=== PATIENT | female | born 1980 | race Caucasian/White ===

== ENCOUNTER → 2017-05-09 | Outpatient (CLI) | payer MEDICAID, OTHER ==
--- NOTE | 2017-05-09 12:00 | US ---
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 0.3 X 0.2 x 0.1 cm hypoechoic mixed nodule at the lower pole with well-defined margins. This no dule is wider than tall and shows no intranodular vascularity. LEFT: # of nodules measured on left: 0 ISTHMUS: # of nodules measured in the isthmus: 0 Bilateral neck scanned: upper left lymph node is noted at patient's area of palpable = 2.0 x 1.1 x 0. 4cm. IMPRESSION: Solitary 3 mm left thyroid nodule, too small for fine-needle aspiration. Surveillance is recommended. Incidentally noted nonenlarged, morphologically normal cervical lymph node is seen in the patient's area of palpable abnormality.
== END | disposition home or self-care (01) ==
LOC: RADUSWWP 11:02
PROVIDERS: ATTEND Internal Medicine Endocrinology, Diabetes & Metabolism
DX: E04.1 Nontoxic single thyroid nodule (principal); E55.9 Vitamin D deficiency, unspecified; E06.3 Autoimmune thyroiditis
CPT/HCPCS: 76536; 82306; 84443

== ENCOUNTER → 2017-07-26 | Outpatient (CLI) | payer MEDICAID, OTHER ==
--- NOTE | 2017-07-26 08:50 | US ---
EXAMINATION TYPE: US pelvic complete DATE OF EXAM: 07/26/2017 COMPARISON: NONE CLINICAL HISTORY: R10.13 Epigstric pain. Abnormally heavy bleeding with current period, passing large clots, 5, para 3, miscarriage 2, history of 3 c-sections and tubal ligation. TECHNIQUE: . Transabdominal sonographic images of the pelvis were acquired. Transvaginal sonographi c images were medically necessary to better assess the following anatomy: retroverted uterus and ovar ies. Date of LMP: 07/22/2017 EXAM MEASUREMENTS: Uterus: 8.7 x 4.8 x 6.0 cm Endometrial Stripe: 0.5 cm Right Ovary: 2.6 x 1.6 x 2.0 cm Left Ovary: 3.4 x 1.9 x 2.2 cm 1. Uterus: retroverted, heterogeneous without any definite lesions seen at this time 2. Endometrium: wnl for patient's LMP 3. Right Ovary: wnl 4. Left Ovary: small 1.3cm simple cyst vs. dominant follicle 5. Bilateral Adnexa: wnl 6. Posterior cul-de-sac: wnl IMPRESSION: 1. Simple left ovarian cyst. Multiple follicles are also present.
[2017-07-26 09:10] LABS: Basophils % (A) 1 %; Eosinophils # (A) 0.1 k/uL (0-0.7); Eosinophils % (A) 2 %; HCT 37.8 % (34.0-46.0); HGB 12.3 gm/dL (11.4-16.0); Lymphocytes # (A) 1.8 k/uL (1.0-4.8); Lymphocytes % (A) 29 %; MCH 28.7 pg (25.0-35.0); MCHC 32.6 g/dL (31.0-37.0); MCV 88.2 fL (80.0-100.0); Mean Platelet Volume 7.4; Monocytes # (A) 0.3 k/uL (0-1.0); Monocytes % (A) 5 %; Neutrophils # (A) 3.9 k/uL (1.3-7.7); Neutrophils % (A) 63 %; Platelet Count 243 k/uL (150-450); RBC 4.28 m/uL (3.80-5.40); RDW 13.1 % (11.5-15.5); WBC 6.3 k/uL (3.8-10.6)
[2017-07-26 09:18] LABS: ALT 29 U/L (9-52); AST 26 U/L (14-36); Albumin 4.5 g/dL (3.5-5.0); Alkaline Phosphatase 33 U/L (38-126); Anion Gap 11 mmol/L; Blood Urea Nitrogen 18 mg/dL (7-17); Calcium 9.2 mg/dL (8.4-10.2); Carbon Dioxide 26 mmol/L (22-30); Chloride 102 mmol/L (98-107); Glucose 80 mg/dL (74-99); Potassium 4.3 mmol/L (3.5-5.1); Sodium 139 mmol/L (137-145); Total Bilirubin 0.4 mg/dL (0.2-1.3); Total Protein 6.6 g/dL (6.3-8.2)
[2017-07-26 09:34] LABS: T4, Free (Free Thyroxine) 1.02 ng/dL (0.78-2.19)
== END | disposition home or self-care (01) ==
LOC: RADUSMAIN 07:59
PROVIDERS: ATTEND Physician Assistant
DX: N83.292 Other ovarian cyst, left side (principal); N93.9 Abnormal uterine and vaginal bleeding, unspecified
CPT/HCPCS: 36415; 76830; 76856; 80053; 84439; 84443; 85025

== ENCOUNTER 2017-09-19 18:59 | Emergency (ER) | payer MEDICAID, OTHER ==
[2017-09-19 19:07] VITALS: TEMP 98.4
[2017-09-19 20:17] VITALS: RESP 16
--- NOTE | 2017-09-19 20:20 | ED ---
Headache HPI - General Chief Complaint: Headache Stated Complaint: CT [id number] by Time Seen by Provider: 09/19/17 20:03 Mode of arrival: ambulatory Limitations: no limitations - History of Present Illness Initial Comments: 37-year-old female patient presents to the emergency department today for evaluation of posterior headache at the base of her skull that radiates into her neck. Patient states that she has had the headache for the last 6 days. Patient states that the pain gets up to 6-7 on a pain scale of 10. The patient states that with this she does have blurred vision, dizziness, and nausea. Patient denies any history of headaches or of similar pain. She denies any recent head injury. States that she has taken Excedrin Migraine, ibuprofen, Tylenol multiple times without relief of symptoms. States that she has been applying icy hot and heat packs to her neck thinking it might of been a muscle strain, this has not helped either. Patient states that she did go to urgent care today, had labs performed and CT of the brain. Patient states that they called her with abnormal CT results and instructed her to present to the emergency department right away. Patient denies any nasal congestion or drainage. Denies any fever or chills. States should have a sore throat over the weekend for which she took a Z-Femi, this did relieve her sore throat symptoms. Patient denies any recent rash, fever, chills, shortness breath, chest pain, abdominal pain, diarrhea, constipation, back pain, numbness, tingling, dizziness, weakness, hematuria, dysuria, urinary urgency, urinary frequency, or any other complaints. - Related Data Home Medications Medication Instructions Recorded Confirmed Acetaminophen Tab [Tylenol Tab] 650 mg PO Q6H PRN 09/19/17 09/19/17 Albuterol Inhaler [Ventolin Hfa 2 puff INHALATION RT-Q6H PRN 09/19/17 09/19/17 Inhaler] Aspirin/Acetaminophen/Caffeine 1 tab PO BID PRN 09/19/17 09/19/17 [Excedrin Migraine Caplet] Beclomethasone Dipropionate [Qvar 2 puff INHALATION RT-DAILY 09/19/17 09/19/17 80 mcg] Ibuprofen [Motrin Ib] 600 mg PO Q6H PRN 09/19/17 09/19/17 Previous Rx's Medication Instructions Recorded Doxycycline Hyclate 100 mg PO BID #20 tab 09/19/17 Allergies Allergy/AdvReac Type Severity Reaction Status Date / Time penicillin V [From Pen-Vee K] AdvReac Nausea Verified 09/19/17 20:27 Review of Systems ROS Statement: Those systems with pertinent positive or pertinent negative responses have been documented in the HPI. ROS Other: All systems not noted in ROS Statement are negative. Past Medical History Past Medical History: Asthma, Blood Disorder, Thyroid Disorder History of Any Multi-Drug Resistant Organisms: None Reported Past Surgical History: Section, Cholecystectomy, Tubal Ligation Past Psychological History: No Psychological Hx Reported Smoking Status: Never smoker Past Alcohol Use History: Occasional Past Drug Use History: None Reported General Exam Limitations: no limitations General appearance: alert, in no apparent distress, other (This is a well- developed, well-nourished adult female patient in no acute distress. Vital signs upon presentation are temperature 98.4F, pulse 75, respirations 118, blood pressure 135/92, pulse ox 98% on room air.) Eye exam: Present: normal appearance, PERRL, EOMI. Absent: scleral icterus, conjunctival injection, periorbital swelling ENT exam: Present: normal exam, normal oropharynx, mucous membranes moist, TM's normal bilaterally, other (No sinus tenderness) Neck exam: Present: normal inspection. Absent: tenderness, meningismus, lymphadenopathy Respiratory exam: Present: normal lung sounds bilaterally. Absent: respiratory distress, wheezes, rales, rhonchi, stridor Cardiovascular Exam: Present: regular rate, normal rhythm, normal heart sounds. Absent: systolic murmur, diastolic murmur, rubs, gallop, clicks GI/Abdominal exam: Present: soft, normal bowel sounds. Absent: distended, tenderness, guarding, rebound, rigid Neurological exam: Present: alert, oriented X3, CN II-XII intact, other ( Strength in all 4 extremities is 5/5.) Psychiatric exam: Present: normal affect, normal mood Skin exam: Present: warm, dry, intact, normal color. Absent: rash Course Vital Signs 09/19/17 09/19/17 09/19/17 19:03 20:16 21:12 Temperature 98.4 F Pulse Rate 75 74 71 Respiratory 118 H 16 16 Rate Blood Pressure 135/92 144/83 151/83 O2 Sat by Pulse 98 99 97 Oximetry Medical Decision Making - Medical Decision Making 37-year-old female patient presented to the emergency department today for complaints of posterior headache that radiated into her neck. Patient did have CT of the brain and labs performed at urgent care this morning. Did review the report from her CT which showed right maxillary sinus opacification with complex that he is indicating either fungal sinusitis or possible hemorrhage. There is no intracranial abnormalities. Labs reviewed and were normal. I did discuss findings with the patient and did discuss treatment for the sinusitis however did inform I do not believe that her headache and the sinusitis is related. We will treat her with doxycycline as she is ALLERGIC to penicillin. I did offer to treat her pain here in the emergency department however she is unable to receive anything that will alter her driving ability she does not have a ride home. Patient is taking Tylenol and ibuprofen already for pain control and she is instructed to continue this. We will add muscle relaxer for possible tension headache. She is instructed to follow-up with neurology for further evaluation. She is instructed to follow-up with your nose and throat specialty for further evaluation of the opacified right maxillary sinus. Return parameters discussed in detail. She verbalizes understanding and agrees with this plan. - Radiology Data Radiology results: report reviewed CT of the brain without contrast was performed. Report was reviewed in its entirety. Impression by Dr. Anna shows no acute intracranial hemorrhage, mass effect, or midline shift. If there is further clinical concern for small brain hemorrhage or parenchymal mass or white matter disease enhanced MRI could be performed for further evaluation. Complete opacification of the right maxillary sinus with complex attenuation internally suggests either atypical infection such as fungal infection or internal hemorrhage. CT ordered by Dr. Mahmood at urgent care. Disposition Clinical Impression: Acute headache, Right maxillary sinusitis Disposition: HOME SELF-CARE Condition: Good Instructions: Sinusitis (ED), Acute Headache (ED), Warm Compress or Soak (ED) Additional Instructions: Continue taking ibuprofen and Tylenol for headache. Apply warm compresses to the neck as you have been doing. Add in the muscle relaxer. Complete antibiotic prescription in full. Follow-up with Ear, Nose, and Throat specialty for further evaluation of the abnormalities with your right maxillary sinus. Follow-up with a primary care physician for recheck as soon as possible. Prescriptions: Doxycycline Hyclate 100 mg PO BID #20 tab Is patient prescribed a controlled substance at d/c from ED?: No Referrals: Wilber Mahmood MD [Primary Care Provider] - 1-2 days Ankit Gold MD [STAFF PHYSICIAN] - 1-2 days Ahsan Lynch MD [STAFF PHYSICIAN] - 1-2 days Time of Disposition: 20:43
[2017-09-19] MEDS ORDERED: CYCLOBENZAPRINE 10MG STARTER 3 TAB BTL PO STA (20:35)
[2017-09-19 21:13] VITALS: BP 151/83; PULSE 71
== END 2017-09-19 21:21 | disposition home or self-care (01) ==
LOC: EC 18:59
DX: J32.0 Chronic maxillary sinusitis (principal); J45.909 Unspecified asthma, uncomplicated; Z79.51 Long term (current) use of inhaled steroids; Z88.0 Allergy status to penicillin
CPT/HCPCS: 99284

== ENCOUNTER → 2017-09-19 | Outpatient (CLI) | payer MEDICAID, OTHER ==
[2017-09-19 12:08] LABS: Basophils % (A) 1 %; Eosinophils # (A) 0.2 k/uL (0-0.7); Eosinophils % (A) 3 %; HCT 36.6 % (34.0-46.0); Lymphocytes # (A) 1.6 k/uL (1.0-4.8); Lymphocytes % (A) 22 %; MCH 29.1 pg (25.0-35.0); MCHC 32.8 g/dL (31.0-37.0); MCV 88.9 fL (80.0-100.0); Mean Platelet Volume 7.1; Monocytes # (A) 0.2 k/uL (0-1.0); Monocytes % (A) 3 %; Neutrophils # (A) 4.9 k/uL (1.3-7.7); Neutrophils % (A) 70 %; Platelet Count 291 k/uL (150-450); RBC 4.12 m/uL (3.80-5.40); RDW 13.1 % (11.5-15.5); WBC 7.1 k/uL (3.8-10.6)
[2017-09-19 12:15] LABS: Albumin 4.1 g/dL (3.5-5.0); Anion Gap 7 mmol/L; Calcium 9.3 mg/dL (8.4-10.2); Carbon Dioxide 26 mmol/L (22-30); Chloride 105 mmol/L (98-107); Glucose 88 mg/dL (74-99); Sodium 138 mmol/L (137-145); Total Bilirubin 0.4 mg/dL (0.2-1.3); Total Protein 6.5 g/dL (6.3-8.2)
[2017-09-19 12:18] LABS: Blood Urea Nitrogen 16 mg/dL (7-17); Potassium 4.5 mmol/L (3.5-5.1)
[2017-09-19 12:19] LABS: ALT 21 U/L (9-52); AST 27 U/L (14-36); Alkaline Phosphatase 29 U/L (38-126)
--- NOTE | 2017-09-19 12:32 | CT ---
EXAMINATION TYPE: CT brain wo con DATE OF EXAM: 09/19/2017 COMPARISON: NONE HISTORY: Headache for one week with increasing intensity CT DLP: 1036.00 mGycm. Automated Exposure Control for Dose Reduction was Utilized. TECHNIQUE: CT scan of the head is performed without contrast. FINDINGS: There is no acute intracranial hemorrhage, mass effect, or midline shift identified. The ventricles and sulci are within normal limits in size. The globes are intact. There is complete opa cification of the right maxillary sinus with areas of internal high density suggesting complexity suc h as hemorrhagic component or atypical infection such as fungal disease. Remaining paranasal sinuses are well aerated other than very scant mucosal thickening in the inferior posterior left maxillary si nus. Mastoid air cells are also well-aerated. IMPRESSION: 1. No acute intracranial hemorrhage, mass effect, or midline shift is seen. If there is further clini jailyn concern for small bowel hemorrhage or parenchymal mass or white matter disease enhanced MRI could be performed for further evaluation. 2. Complete opacification of the right maxillary sinus with complex attenuation internally suggesting either atypical infection such as fungal infection or internal hemorrhage.
== END | disposition home or self-care (01) ==
LOC: RADCTMAIN 11:24
PROVIDERS: ATTEND Family Medicine
DX: J34.89 Other specified disorders of nose and nasal sinuses (principal); R51 Headache
CPT/HCPCS: 70450; 80053; 85025

== ENCOUNTER → 2017-10-09 | Outpatient (CLI) | payer MEDICAID, OTHER ==
[2017-10-09 08:07] LABS: Basophils % (A) 1 %; Eosinophils # (A) 0.2 k/uL (0-0.7); Eosinophils % (A) 3 %; HCT 36.3 % (34.0-46.0); HGB 11.8 gm/dL (11.4-16.0); Lymphocytes # (A) 2.4 k/uL (1.0-4.8); Lymphocytes % (A) 36 %; MCH 28.7 pg (25.0-35.0); MCHC 32.4 g/dL (31.0-37.0); MCV 88.7 fL (80.0-100.0); Mean Platelet Volume 7.1; Monocytes # (A) 0.4 k/uL (0-1.0); Monocytes % (A) 6 %; Neutrophils # (A) 3.6 k/uL (1.3-7.7); Neutrophils % (A) 54 %; Platelet Count 279 k/uL (150-450); WBC 6.7 k/uL (3.8-10.6)
[2017-10-09 08:19] LABS: ALT 29 U/L (9-52); AST 25 U/L (14-36); Albumin 3.8 g/dL (3.5-5.0); Alkaline Phosphatase 33 U/L (38-126); Anion Gap 5 mmol/L; Blood Urea Nitrogen 18 mg/dL (7-17); Carbon Dioxide 26 mmol/L (22-30); Chloride 108 mmol/L (98-107); Cholesterol 187 mg/dL (<200); Glucose 91 mg/dL (74-99); HDL Cholesterol 63 mg/dL (40-60); LDL Cholesterol,Calculated 110 mg/dL (0-99); Potassium 4.3 mmol/L (3.5-5.1); Sodium 139 mmol/L (137-145); Total Bilirubin 0.3 mg/dL (0.2-1.3); Total Protein 6.1 g/dL (6.3-8.2); Triglycerides 71 mg/dL (<150)
== END | disposition home or self-care (01) ==
LOC: LABWHC1 07:33
PROVIDERS: ATTEND Family Medicine
DX: Z00.00 Encounter for general adult medical examination without abnormal findings (principal)
CPT/HCPCS: 36415; 80053; 80061; 82306; 85025

== ENCOUNTER → 2018-02-13 | Outpatient (CLI) | payer MEDICAID, OTHER ==
--- NOTE | 2018-02-13 11:12 | US ---
EXAMINATION TYPE: US abdomen complete DATE OF EXAM: 02/13/2018 COMPARISON: NONE CLINICAL HISTORY: R10.12 LUQ ABD PAIN. Pt states LUQ pain, sometimes pain in epigastric area, GB bhargav ligia in 2013 EXAM MEASUREMENTS: Liver Length: 15.6 cm CBD: 0.4 cm Spleen: 9.1 cm Right Kidney: 10.3 x 3.5 x 4.7 cm Left Kidney: 9.6 x 4.7 x 3.5 cm Pancreas: wnl Liver: wnl Gallbladder: Surgically absent Evidence for sonographic Nazario's sign: no CBD: wnl Spleen: wnl Right Kidney: wnl Left Kidney: wnl Upper IVC: wnl Abd Aorta: wnl No abnormality visualized to account for pt's symptoms/ Results called to Yadira at 's office at [facility] of exam The visualized liver is homogenous. The intrahepatic portion of the IVC and proximal abdominal aorta are within normal limits. Gallbladder is surgically absent. Common bile duct is unremarkable. The visualized portions of the pancreas are homogenous. The spleen is unremarkable. Kidneys are symmetr ic and free of hydronephrosis. No renal lesions are seen. IMPRESSION: No significant finding is seen to account for patient's symptoms.
[2018-02-13 11:51] LABS: Basophils # (A) 0.1 k/uL (0-0.2); Basophils % (A) 2 %; Eosinophils # (A) 0.2 k/uL (0-0.7); Eosinophils % (A) 4 %; HCT 36.5 % (34.0-46.0); HGB 11.9 gm/dL (11.4-16.0); Lymphocytes # (A) 1.6 k/uL (1.0-4.8); Lymphocytes % (A) 31 %; MCH 28.3 pg (25.0-35.0); MCHC 32.7 g/dL (31.0-37.0); MCV 86.5 fL (80.0-100.0); Mean Platelet Volume 7.3; Monocytes # (A) 0.2 k/uL (0-1.0); Monocytes % (A) 5 %; Neutrophils % (A) 57 %; Platelet Count 302 k/uL (150-450); RBC 4.22 m/uL (3.80-5.40); RDW 13.4 % (11.5-15.5); WBC 5.3 k/uL (3.8-10.6)
[2018-02-13 12:04] LABS: ALT 22 U/L (9-52); AST 24 U/L (14-36); Albumin 4.1 g/dL (3.5-5.0); Alkaline Phosphatase 35 U/L (38-126); Amylase 72 U/L (30-110); Anion Gap 9 mmol/L; Blood Urea Nitrogen 12 mg/dL (7-17); Calcium 9.4 mg/dL (8.4-10.2); Carbon Dioxide 27 mmol/L (22-30); Chloride 104 mmol/L (98-107); Glucose 86 mg/dL (74-99); Lipase 228 U/L (23-300); Potassium 4.7 mmol/L (3.5-5.1); Sodium 140 mmol/L (137-145); Total Bilirubin 0.3 mg/dL (0.2-1.3); Total Protein 6.8 g/dL (6.3-8.2)
== END ==
LOC: RADUSWWP 10:11
PROVIDERS: ATTEND Physician Assistant
DX: R10.12 Left upper quadrant pain (principal); R10.13 Epigastric pain
CPT/HCPCS: 76700; 80053; 82150; 83690; 85025; 86663; 86664; 86665

== ENCOUNTER 2018-02-16 12:14 | Emergency (ER) | payer MEDICAID, OTHER ==
[2018-02-16 12:24] VITALS: BP 142/100; PULSE 80; RESP 20
[2018-02-16] MEDS ORDERED: SODIUM CHLORIDE 0.9% 1,000 ML IV STA (12:52)
[2018-02-16 13:40] LABS: Appearance,Urine Clear (Clear); Bilirubin,Urine Negative (Negative); Blood,Urine Negative (Negative); Color,Urine Colorless; Glucose,Urine (UA) Negative (Negative); Ketones,Urine Negative (Negative); Leukocyte Esterase,Urine Negative (Negative); Nitrite,Urine Negative (Negative); PH, Urine 6.5 (5.0-8.0); Protein,Urine Negative (Negative); Specific Gravity,Urine 1.003 (1.001-1.035); Urobilinogen,Urine <2.0 mg/dL (<2.0)
--- NOTE | 2018-02-16 13:45 | ED ---
Abdominal Pain HPI - General Chief Complaint: Abdominal Pain Stated Complaint: Abd.pain Time Seen by Provider: 02/16/18 12:49 Source: patient, RN notes reviewed, old records reviewed Mode of arrival: ambulatory Limitations: no limitations - History of Present Illness Initial Comments: 37-year-old female presents to return [facility] plane of abdominal pain and fullness for the past week. Patient states she feels like her spleen and kidneys are being crushed. She feels like she has extra fluid within her abdomen. Patient states she's had ultrasounds earlier this week. 2 was informed that she may have an ulcer. Patient had blood work also at urgent care earlier this week which resolved reviewed to be normal. Patient has had nausea but no vomiting. Normal stools. - Related Data Home Medications Medication Instructions Recorded Confirmed Albuterol Inhaler [Ventolin Hfa 2 puff INHALATION RT-Q6H PRN 09/19/17 02/16/18 Inhaler] Levothyroxine Sodium [Synthroid] 25 mcg PO DAILY 02/16/18 02/16/18 Mometasone/Formoterol [Dulera 100 2 puff INHALATION RT-BID 02/16/18 02/16/18 Mcg/5 Mcg Inhaler] Omeprazole 40 mg PO DAILY 02/16/18 02/16/18 Previous Rx's Medication Instructions Recorded Ondansetron Odt [Zofran Odt] 4 mg PO Q8HR PRN #12 tab 02/16/18 Allergies Allergy/AdvReac Type Severity Reaction Status Date / Time No Known Allergies Allergy Verified 02/16/18 13:30 Review of Systems ROS Statement: Those systems with pertinent positive or pertinent negative responses have been documented in the HPI. ROS Other: All systems not noted in ROS Statement are negative. Past Medical History Past Medical History: Asthma, Blood Disorder, Thyroid Disorder History of Any Multi-Drug Resistant Organisms: None Reported Past Surgical History: Section, Cholecystectomy, Tubal Ligation Past Psychological History: No Psychological Hx Reported Smoking Status: Never smoker Past Alcohol Use History: Occasional Past Drug Use History: None Reported General Exam - General Exam Comments Initial Comments: 37-year-old female. Alert and oriented. Patient appears in no significant distress. Limitations: no limitations General appearance: alert, in no apparent distress Head exam: Present: atraumatic, normocephalic, normal inspection Eye exam: Present: normal appearance, PERRL, EOMI. Absent: scleral icterus, conjunctival injection, periorbital swelling ENT exam: Present: normal exam, mucous membranes moist Neck exam: Present: normal inspection. Absent: tenderness, meningismus, lymphadenopathy Respiratory exam: Present: normal lung sounds bilaterally. Absent: respiratory distress, wheezes, rales, rhonchi, stridor Cardiovascular Exam: Present: regular rate, normal rhythm, normal heart sounds. Absent: systolic murmur, diastolic murmur, rubs, gallop, clicks GI/Abdominal exam: Present: soft, normal bowel sounds. Absent: distended, tenderness, guarding, rebound, rigid Extremities exam: Present: normal inspection, full ROM, normal capillary refill. Absent: tenderness, pedal edema, joint swelling, calf tenderness Back exam: Present: normal inspection Course Vital Signs 02/16/18 02/16/18 12:21 15:51 Temperature 98.3 F 98.0 F Pulse Rate 80 Respiratory 20 Rate Blood Pressure 142/100 O2 Sat by Pulse 99 Oximetry Medical Decision Making - Medical Decision Making [id number] female presented to return to complaint of abdominal pain and fullness feeling. Patient at this time and normal vital signs. She has no specific tenderness. She does complain of some nausea. She is diagnosed with peptic ulcer disease. She is convinced that she has a history of fluid on her abdomen. She's had ultrasounds at this time which have been negative. Patient started on IV fluids labwork obtained. Patient labs are unremarkable. Urinalysis is clear. Patient did have a CT abdomen and pelvis. There is evidence of some small ovarian cysts. But there is no signs of intra-abdominal fluid collection. No acute process noted. Patient informed of all these results. Discussed the normal CT and lab work. It is likely the Patient does have peptic ulcer disease. We'll discharge the Patient was Zofran. She is scheduled given H. pylori test. Discussed close follow-up with PCP. All questions answered. - Lab Data Result diagrams: 02/16/18 13:15 02/16/18 13:15 Lab Results 02/16/18 02/16/18 02/16/18 Range/Units 13:15 13:15 13:15 WBC 11.0 H (3.8-10.6) k/uL RBC 4.43 (3.80-5.40) m/uL Hgb 12.2 (11.4-16.0) gm/dL Hct 37.6 (34.0-46.0) % MCV 84.9 (80.0-100.0) fL MCH 27.6 (25.0-35.0) pg MCHC 32.5 (31.0-37.0) g/dL RDW 13.4 (11.5-15.5) % Plt Count 265 (150-450) k/uL Neutrophils % 81 % Lymphocytes % 12 % Monocytes % 4 % Eosinophils % 2 % Basophils % 1 % Neutrophils # 8.9 H (1.3-7.7) k/uL Lymphocytes # 1.3 (1.0-4.8) k/uL Monocytes # 0.4 (0-1.0) k/uL Eosinophils # 0.2 (0-0.7) k/uL Basophils # 0.1 (0-0.2) k/uL PT (9.0-12.0) sec INR (<1.2) APTT (22.0-30.0) sec Sodium 139 (137-145) mmol/L Potassium 4.8 (3.5-5.1) mmol/L Chloride 108 H (98-107) mmol/L Carbon Dioxide 24 (22-30) mmol/L Anion Gap 7 mmol/L BUN 12 (7-17) mg/dL Creatinine 0.72 (0.52-1.04) mg/dL Est GFR (CKD-EPI)AfAm >90 (>60 ml/min/1.73 sqM) Est GFR (CKD-EPI)NonAf >90 (>60 ml/min/1.73 sqM) Glucose 86 (74-99) mg/dL Plasma Lactic Acid Phill (0.7-2.0) mmol/L Calcium 9.4 (8.4-10.2) mg/dL Total Bilirubin 0.4 (0.2-1.3) mg/dL AST 31 (14-36) U/L ALT 30 (9-52) U/L Alkaline Phosphatase 35 L (38-126) U/L Total Protein 7.1 (6.3-8.2) g/dL Albumin 4.3 (3.5-5.0) g/dL Amylase 77 (30-110) U/L Lipase 156 (23-300) U/L Urine Color Colorless Urine Appearance Clear (Clear) Urine pH 6.5 (5.0-8.0) Ur Specific [place] 1.003 (1.001-1.035) Urine Protein Negative (Negative) Urine Glucose (UA) Negative (Negative) Urine Ketones Negative (Negative) Urine Blood Negative (Negative) Urine Nitrite Negative (Negative) Urine Bilirubin Negative (Negative) Urine Urobilinogen <2.0 (<2.0) mg/dL Ur Leukocyte Esterase Negative (Negative) Urine HCG, Qual (Not Detectd) 02/16/18 02/16/18 02/16/18 Range/Units 13:15 13:15 13:15 WBC (3.8-10.6) k/uL RBC (3.80-5.40) m/uL Hgb (11.4-16.0) gm/dL Hct (34.0-46.0) % MCV (80.0-100.0) fL MCH (25.0-35.0) pg MCHC (31.0-37.0) g/dL RDW (11.5-15.5) % Plt Count (150-450) k/uL Neutrophils % % Lymphocytes % % Monocytes % % Eosinophils % % Basophils % % Neutrophils # (1.3-7.7) k/uL Lymphocytes # (1.0-4.8) k/uL Monocytes # (0-1.0) k/uL Eosinophils # (0-0.7) k/uL Basophils # (0-0.2) k/uL PT 9.8 (9.0-12.0) sec INR 0.9 (<1.2) APTT 24.4 (22.0-30.0) sec Sodium (137-145) mmol/L Potassium (3.5-5.1) mmol/L Chloride (98-107) mmol/L Carbon Dioxide (22-30) mmol/L Anion Gap mmol/L BUN (7-17) mg/dL Creatinine (0.52-1.04) mg/dL Est GFR (CKD-EPI)AfAm (>60 ml/min/1.73 sqM) Est GFR (CKD-EPI)NonAf (>60 ml/min/1.73 sqM) Glucose (74-99) mg/dL Plasma Lactic Acid Phill 0.7 (0.7-2.0) mmol/L Calcium (8.4-10.2) mg/dL Total Bilirubin (0.2-1.3) mg/dL AST (14-36) U/L ALT (9-52) U/L Alkaline Phosphatase (38-126) U/L Total Protein (6.3-8.2) g/dL Albumin (3.5-5.0) g/dL Amylase (30-110) U/L Lipase (23-300) U/L Urine Color Urine Appearance (Clear) Urine pH (5.0-8.0) Ur Specific [place] (1.001-1.035) Urine Protein (Negative) Urine Glucose (UA) (Negative) Urine Ketones (Negative) Urine Blood (Negative) Urine Nitrite (Negative) Urine Bilirubin (Negative) Urine Urobilinogen (<2.0) mg/dL Ur Leukocyte Esterase (Negative) Urine HCG, Qual Not Detected (Not Detectd) - Radiology Data Radiology results: report reviewed CT of the pelvis was reviewed. Negative for any acute process. Evidence of small ovarian cyst. Normal appendix. Disposition Clinical Impression: Gastritis, Hiatal hernia Disposition: HOME SELF-CARE Condition: Good Instructions: Gastritis (ED), Diet for Stomach Ulcers and Gastritis (ED) Additional Instructions: Patient has follow-up with primary care physician. Return to emergency department if any alarming signs or symptoms occur. Prescriptions: Ondansetron Odt [Zofran Odt] 4 mg PO Q8HR PRN #12 tab PRN Reason: Nausea Is patient prescribed a controlled substance at d/c from ED?: No Referrals: Clay Dolan MD [Primary Care Provider] - 1-2 days Faustino Lizarraga MD [STAFF PHYSICIAN] - 1-2 days Time of Disposition: 15:27
[2018-02-16 13:51] LABS: INR 0.9 (<1.2); Partial Thromboplastin Time 24.4 sec (22.0-30.0); Prothrombin Time 9.8 sec (9.0-12.0)
[2018-02-16 13:52] LABS: ALT 30 U/L (9-52); AST 31 U/L (14-36); Albumin 4.3 g/dL (3.5-5.0); Alkaline Phosphatase 35 U/L (38-126); Amylase 77 U/L (30-110); Anion Gap 7 mmol/L; Blood Urea Nitrogen 12 mg/dL (7-17); Calcium 9.4 mg/dL (8.4-10.2); Carbon Dioxide 24 mmol/L (22-30); Chloride 108 mmol/L (98-107); Glucose 86 mg/dL (74-99); Lipase 156 U/L (23-300); Potassium 4.8 mmol/L (3.5-5.1); Sodium 139 mmol/L (137-145); Total Bilirubin 0.4 mg/dL (0.2-1.3); Total Protein 7.1 g/dL (6.3-8.2)
[2018-02-16 14:09] LABS: Basophils # (A) 0.1 k/uL (0-0.2); Basophils % (A) 1 %; Eosinophils # (A) 0.2 k/uL (0-0.7); Eosinophils % (A) 2 %; HCT 37.6 % (34.0-46.0); HGB 12.2 gm/dL (11.4-16.0); Lymphocytes # (A) 1.3 k/uL (1.0-4.8); Lymphocytes % (A) 12 %; MCH 27.6 pg (25.0-35.0); MCHC 32.5 g/dL (31.0-37.0); MCV 84.9 fL (80.0-100.0); Mean Platelet Volume 7.8; Monocytes # (A) 0.4 k/uL (0-1.0); Monocytes % (A) 4 %; Neutrophils # (A) 8.9 k/uL (1.3-7.7); Neutrophils % (A) 81 %; Platelet Count 265 k/uL (150-450); RBC 4.43 m/uL (3.80-5.40); RDW 13.4 % (11.5-15.5)
--- NOTE | 2018-02-16 14:16 | CT ---
EXAMINATION TYPE: CT abdomen pelvis w con DATE OF EXAM: 02/16/2018 COMPARISON: None HISTORY: upper abd pain CT DLP: 585.5 mGycm Automated exposure control for dose reduction was used. TECHNIQUE: Helical acquisition of images was performed from the lung bases through the pelvis. CONTRAST: Performed without Oral Contrast and with IV Contrast, patient injected with 100 mL of Isovue 300. FINDINGS: Lung bases are clear. There is no pleural effusion. There are small hiatal hernia. Heart size is norm al. Liver spleen pancreas appear normal. There are clips from cholecystectomy. Bile ducts are not dilated . There is no adrenal mass. Kidneys show satisfactory contrast opacification. There is no hydronephrosi s. There is no retroperitoneal adenopathy. Ureters are not dilated. Bladder distends smoothly. There is no free fluid in the pelvis. There is no inguinal hernia. Uterus is retroverted. There are bilateral cysts on the ovaries that measure up to 1.5 cm. There is no mesenteric edema or adenopathy. There is broad-based umbilical hernia. I see no intestina l wall thickening. There are no dilated loops. There is no sign of a bowel obstruction. Appendix appe ars normal. Lumbar vertebra have normal spacing and alignment. Bony pelvis is intact. IMPRESSION: NORMAL APPENDIX. SMALL OVARIAN CYSTS. NO ACUTE ABNORMALITY.
[2018-02-16] MEDS ORDERED: ONDANSETRON 4 MG/2 ML VIAL IVP STA (15:28)
[2018-02-16 15:53] VITALS: TEMP 98
== END 2018-02-16 15:51 | disposition home or self-care (01) ==
LOC: EC 12:14
DX: K29.70 Gastritis, unspecified, without bleeding (principal); K44.9 Diaphragmatic hernia without obstruction or gangrene; N83.201 Unspecified ovarian cyst, right side; N83.202 Unspecified ovarian cyst, left side; J45.909 Unspecified asthma, uncomplicated; E07.9 Disorder of thyroid, unspecified; Z79.51 Long term (current) use of inhaled steroids; Z79.899 Other long term (current) drug therapy; Z90.49 Acquired absence of other specified parts of digestive tract; Z98.51 Tubal ligation status
CPT/HCPCS: 99284; 96374; 96361; 36415; 80053; 82150; 83605; 83690; 85025; 85610; 85730; 81003; 81025; 87040; 74177; J2405; Q9967

== ENCOUNTER 2018-02-21 20:26 | Emergency (ER) | payer MEDICAID, OTHER ==
[2018-02-21] MEDS ORDERED: SODIUM CHLORIDE 0.9% 1,000 ML IV STA (21:25)
--- NOTE | 2018-02-21 21:29 | ED ---
General Adult HPI - General Source: patient, RN notes reviewed, old records reviewed Mode of arrival: ambulatory Limitations: no limitations <Bao Bowles - Last Filed: 02/22/18 00:06> <Belen Huber - Last Filed: 02/24/18 01:55> - General Chief complaint: Abdominal Pain Stated complaint: Hernia, SOB - History of Present Illness Initial comments: 37-year-old female patient past history of asthma, factor V Leiden, cholecystectomy, tubal ligation presents to ED for epigastric abdominal pain. Patient was recently evaluated at this ED for this problem on 02/16. At this time patient complained of epigastric abdominal pain and fullness. A CT of the abdomen and pelvis displayed a umbilical hernia, no acute abnormality. Patient was diagnosed with gastritis and started on omeprazole. Patient returns today approximately 6 days later for continued complaint of epigastric abdominal pain. Patient has additional complaint of shortness of breath. Patient states that she was having shortness of breath previously however she feels as if it has gotten worse. Patient states that she feels there is a pressure in her epigastric/distal sternal region being a difficult for her to breathe. 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 Patient denies any use of oral contraceptives, denies any long recent travel. Patient denies chest pain. Patient reports that she had some nausea without emesis earlier today. Patient took zofran and it resolved. Patient denies all complaints. Systemic: Pt denies fatigue, myalgia, fever, rash. Pt denies weakness, night sweats, weight loss. Neuro: Pt denies headache, visual disturbances, syncope or pre-syncope. HEENT: Pt denies ocular discharge or irritation, otalgia, rhinorrhea, pharyngitis or notable lymphadenopathy. Cardiopulmonary: Pt denies chest pain, heart palpitations, dyspnea on exertion. Abdominal/GI: Pt denies abdominal pain, n/v/d. : Pt denies dysuria, burning w/ urination, frequency/urgency. Denies new onset urinary or bowel incontinence. MSK: Pt denies myalgia, loss of strength or function in extremities. Neuro: Pt denies new onset weakness, paresthesias. (Bao Bowles) - Related Data Home Medications Medication Instructions Recorded Confirmed Albuterol Inhaler [Ventolin Hfa 2 puff INHALATION RT-Q6H PRN 09/19/17 02/21/18 Inhaler] Omeprazole 40 mg PO DAILY 02/16/18 02/21/18 Colloidal Silver 1 tab PO DAILY 02/21/18 02/21/18 Elderberry Fruit and Flower [Black 1 cap PO DAILY 02/21/18 02/21/18 Elderberry 575 mg Cap] Multivitamins, Thera [Multivitamin 1 tab PO DAILY 02/21/18 02/21/18 (formulary)] Previous Rx's Medication Instructions Recorded Ondansetron Odt [Zofran Odt] 4 mg PO Q8HR PRN #12 tab 02/16/18 Pantoprazole Sodium [Protonix] 20 mg PO Q24HR 21 Days #21 02/22/18 tablet. Sucralfate [Carafate] 1 gm PO BID 21 Days #84 tablet 02/22/18 Allergies Allergy/AdvReac Type Severity Reaction Status Date / Time No Known Allergies Allergy Verified 02/21/18 21:09 Review of Systems ROS Other: All systems not noted in ROS Statement are negative. <Bao Bowles - Last Filed: 02/22/18 00:06> ROS Other: All systems not noted in ROS Statement are negative. <Belen Huber P - Last Filed: 02/24/18 01:55> ROS Statement: Those systems with pertinent positive or pertinent negative responses have been documented in the HPI. Past Medical History Past Medical History: Asthma, Blood Disorder, Thyroid Disorder Additional Past Medical History / Comment(s): Hernia, Factor 5. History of Any Multi-Drug Resistant Organisms: None Reported Past Surgical History: Section, Cholecystectomy, Tubal Ligation Past Psychological History: Anxiety Smoking Status: Never smoker Past Alcohol Use History: Occasional Past Drug Use History: None Reported <Bao Bowles - Last Filed: 02/22/18 00:06> General Exam Limitations: no limitations <Bao Bowles - Last Filed: 02/22/18 00:06> <Belen Huber P - Last Filed: 02/24/18 01:55> - General Exam Comments Initial Comments: Constitutional: NAD, AOX3, Pt has pleasant affect. HEENT: NC/AT, trachea midline, neck supple, no lymphadenopathy. Posterior pharynx non erythematous, without exudates. External ears appear normal, without discharge. Mucous membranes moist. Eyes PERRLA, EOM intact. There is no scleral icterus. No pallor noted. Cardiopulmonary: RRR, no murmurs, rubs or gallops, no JVD noted. Lungs CTAB in anterior and posterior grijalva. No peripheral edema. Abdominal exam: Abdomen soft and non-distended. Mildly ttp in epigastric region , no other focal areas of tenderness. Bowel sounds active in LLQ. No hepatosplenomegaly. No ecchymosis Neuro: CN II-XII grossly intact. No nuchal rigidity. MSK: No posterior calf tenderness bilaterally, homans sign negative bilaterally. Posterior tibialis and radial pulse +2 bilaterally. Sensation intact in upper and lower extremities. Full active ROM in upper and lower extremities, 5/5 stregnth. (Bao Bowles) Vital Signs 02/21/18 02/21/18 02/21/18 20:28 20:45 20:46 Temperature 97.9 F 99.4 F Pulse Rate 103 H 99 Respiratory 20 20 18 Rate Blood Pressure 158/96 133/91 133/91 O2 Sat by Pulse 100 97 97 Oximetry 02/21/18 02/21/18 02/22/18 21:00 22:00 00:21 Temperature 97.9 F Pulse Rate 83 83 Respiratory 20 18 18 Rate Blood Pressure 117/82 124/78 117/75 O2 Sat by Pulse 97 97 98 Oximetry Medical Decision Making - Lab Data Result diagrams: 02/21/18 21:56 02/21/18 21:56 - EKG Data -: EKG Interpreted by Ks (and dr huber) <Bao Bowles - Last Filed: 02/22/18 00:06> - Lab Data Result diagrams: 02/21/18 21:56 02/21/18 21:56 <Belen Huber - Last Filed: 02/24/18 01:55> - Medical Decision Making 37 y/o female pt with pmhx of factor V leiden presents in ED with epigastric pain and shortness of breath. Pt was evaluated for the epigastric abdominal pain on 02/16 and diagnosed with gastritis. Pt states the sob has been going on for approximately 2 days. Denies chest pain. Denies pleuritic chest pain. Physical exam displayed mild ttp in epigastric region. Laboratory investigations revealed mild leukocytosis on CBC 11.3. Negative d-dimer. Unimpressive CMP. Amylase lipase within normal limits. Troponin negative. Lactic acid nonimpressive. UA nonimpressive. Imaging modalities CT chest pulmonary angiography revealed no evidence of PE, small hiatal hernia. Ct abdomen pelvis displayed small amount of free fluid in the pelvis, normal appendic, small ovarian cyst. CXR/KUB displayed no acute process. Pt diagnosed with gastritis and hiatal hernia. EKG not concerning for acute ischemia. Pt condition improved in ED with zofran, sucrafate. Pt to be switched from omeprazole to protonix, written rx for sucrafate. Pt already has appointment with passenger screener scheduled. Pt to f/u with pcp in 1-2 days. Pt to return to ED if new s/sx develop or if condition worsens in anyway. Case discussed in depth with Dr. Huber. (Bao Bowles) I was available for consultation in the emergency department. The history and physical exam were done by the midlevel provider. I was consulted for this patient's care. I reviewed the case with the midlevel provider and based on their presentation of the patient, I agree with the assessment, medical decision making and plan of care as documented. (Belen Huber) - Lab Data Lab Results 02/21/18 02/21/18 02/21/18 Range/Units 21:56 21:56 21:56 WBC 11.3 H (3.8-10.6) k/uL RBC 4.13 (3.80-5.40) m/uL Hgb 11.4 (11.4-16.0) gm/dL Hct 35.2 (34.0-46.0) % MCV 85.3 (80.0-100.0) fL MCH 27.7 (25.0-35.0) pg MCHC 32.4 (31.0-37.0) g/dL RDW 13.1 (11.5-15.5) % Plt Count 273 (150-450) k/uL Neutrophils % 74 % Lymphocytes % 16 % Monocytes % 5 % Eosinophils % 2 % Basophils % 1 % Neutrophils # 8.4 H (1.3-7.7) k/uL Lymphocytes # 1.9 (1.0-4.8) k/uL Monocytes # 0.6 (0-1.0) k/uL Eosinophils # 0.2 (0-0.7) k/uL Basophils # 0.1 (0-0.2) k/uL D-Dimer (<0.60) mg/L FEU Sodium 139 (137-145) mmol/L Potassium 4.1 (3.5-5.1) mmol/L Chloride 108 H (98-107) mmol/L Carbon Dioxide 23 (22-30) mmol/L Anion Gap 8 mmol/L BUN 14 (7-17) mg/dL Creatinine 0.75 (0.52-1.04) mg/dL Est GFR (CKD-EPI)AfAm >90 (>60 ml/min/1.73 sqM) Est GFR (CKD-EPI)NonAf >90 (>60 ml/min/1.73 sqM) Glucose 89 (74-99) mg/dL Plasma Lactic Acid Phill (0.7-2.0) mmol/L Calcium 9.3 (8.4-10.2) mg/dL Total Bilirubin 0.3 (0.2-1.3) mg/dL AST 27 (14-36) U/L ALT 30 (9-52) U/L Alkaline Phosphatase 33 L (38-126) U/L Troponin I (0.000-0.034) ng/mL Total Protein 6.8 (6.3-8.2) g/dL Albumin 4.2 (3.5-5.0) g/dL Amylase 70 (30-110) U/L Lipase 142 (23-300) U/L Urine Color Light Yellow Urine Appearance Clear (Clear) Urine pH 7.0 (5.0-8.0) Ur Specific [place] 1.006 (1.001-1.035) Urine Protein Negative (Negative) Urine Glucose (UA) Negative (Negative) Urine Ketones Negative (Negative) Urine Blood Negative (Negative) Urine Nitrite Negative (Negative) Urine Bilirubin Negative (Negative) Urine Urobilinogen <2.0 (<2.0) mg/dL Ur Leukocyte Esterase Negative (Negative) 02/21/18 02/21/18 02/21/18 Range/Units 21:56 21:56 21:56 WBC (3.8-10.6) k/uL RBC (3.80-5.40) m/uL Hgb (11.4-16.0) gm/dL Hct (34.0-46.0) % MCV (80.0-100.0) fL MCH (25.0-35.0) pg MCHC (31.0-37.0) g/dL RDW (11.5-15.5) % Plt Count (150-450) k/uL Neutrophils % % Lymphocytes % % Monocytes % % Eosinophils % % Basophils % % Neutrophils # (1.3-7.7) k/uL Lymphocytes # (1.0-4.8) k/uL Monocytes # (0-1.0) k/uL Eosinophils # (0-0.7) k/uL Basophils # (0-0.2) k/uL D-Dimer 0.33 (<0.60) mg/L FEU Sodium (137-145) mmol/L Potassium (3.5-5.1) mmol/L Chloride (98-107) mmol/L Carbon Dioxide (22-30) mmol/L Anion Gap mmol/L BUN (7-17) mg/dL Creatinine (0.52-1.04) mg/dL Est GFR (CKD-EPI)AfAm (>60 ml/min/1.73 sqM) Est GFR (CKD-EPI)NonAf (>60 ml/min/1.73 sqM) Glucose (74-99) mg/dL Plasma Lactic Acid Phill 0.5 L (0.7-2.0) mmol/L Calcium (8.4-10.2) mg/dL Total Bilirubin (0.2-1.3) mg/dL AST (14-36) U/L ALT (9-52) U/L Alkaline Phosphatase (38-126) U/L Troponin I <0.012 (0.000-0.034) ng/mL Total Protein (6.3-8.2) g/dL Albumin (3.5-5.0) g/dL Amylase (30-110) U/L Lipase (23-300) U/L Urine Color Urine Appearance (Clear) Urine pH (5.0-8.0) Ur Specific [place] (1.001-1.035) Urine Protein (Negative) Urine Glucose (UA) (Negative) Urine Ketones (Negative) Urine Blood (Negative) Urine Nitrite (Negative) Urine Bilirubin (Negative) Urine Urobilinogen (<2.0) mg/dL Ur Leukocyte Esterase (Negative) - EKG Data EKG Comments: ventricular rate 81, TX interval 126, curious 90, QT/QTC 372/432. normal sinus rhythm, no concern for acute ischemia. (Bao Bowles) Disposition Is patient prescribed a controlled substance at d/c from ED?: No <Bao Bowles - Last Filed: 02/22/18 00:06> <Belen Huber - Last Filed: 02/24/18 01:55> Clinical Impression: Gastritis, Hiatal hernia Disposition: HOME SELF-CARE Condition: Fair Instructions: Hiatal Hernia (ED), Gastritis (ED) Additional Instructions: Patient to adhere to previously discussed treatment plan and will take medication(s) as directed. Patient to follow up with PCP in 1-2 days. Patient to return to ED if symptoms do not improve. Prescriptions: Pantoprazole Sodium [Protonix] 20 mg PO Q24HR 21 Days #21 tablet. Sucralfate [Carafate] 1 gm PO BID 21 Days #84 tablet Referrals: Clay Dolan MD [Primary Care Provider] - 1-2 days
[2018-02-21 22:04] VITALS: PULSE 83; RESP 18
[2018-02-21 22:18] LABS: Basophils # (A) 0.1 k/uL (0-0.2); Basophils % (A) 1 %; Eosinophils # (A) 0.2 k/uL (0-0.7); Eosinophils % (A) 2 %; HCT 35.2 % (34.0-46.0); HGB 11.4 gm/dL (11.4-16.0); Lymphocytes # (A) 1.9 k/uL (1.0-4.8); Lymphocytes % (A) 16 %; MCH 27.7 pg (25.0-35.0); MCHC 32.4 g/dL (31.0-37.0); MCV 85.3 fL (80.0-100.0); Mean Platelet Volume 7.2; Monocytes # (A) 0.6 k/uL (0-1.0); Monocytes % (A) 5 %; Neutrophils # (A) 8.4 k/uL (1.3-7.7); Neutrophils % (A) 74 %; Platelet Count 273 k/uL (150-450); RBC 4.13 m/uL (3.80-5.40); RDW 13.1 % (11.5-15.5); WBC 11.3 k/uL (3.8-10.6)
--- NOTE | 2018-02-21 22:18 | XR ---
EXAMINATION TYPE: XR chest 2V DATE OF EXAM: 02/21/2018 COMPARISON: NONE HISTORY: TECHNIQUE: Frontal and lateral views of the chest are obtained. FINDINGS: Heart and mediastinum are normal. Lungs are clear. Diaphragm is normal. Bony thorax appear s normal. IMPRESSION: Normal chest.
--- NOTE | 2018-02-21 22:19 | XR ---
EXAMINATION TYPE: XR KUB DATE OF EXAM: 02/21/2018 COMPARISON: NONE HISTORY: Abdominal pain TECHNIQUE: 2 views upright FINDINGS: There are clips from cholecystectomy. Lung bases are clear. Bowel gas pattern is normal. Th ere is no sign of intestinal obstruction or pneumoperitoneum. Fecal pattern is normal. There is no si gn of a mass. IMPRESSION: Nonacute abdomen.
[2018-02-21 22:22] LABS: Appearance,Urine Clear (Clear); Bilirubin,Urine Negative (Negative); Blood,Urine Negative (Negative); Color,Urine Light Yellow; Glucose,Urine (UA) Negative (Negative); Ketones,Urine Negative (Negative); Leukocyte Esterase,Urine Negative (Negative); Nitrite,Urine Negative (Negative); Protein,Urine Negative (Negative); Specific Gravity,Urine 1.006 (1.001-1.035); Urobilinogen,Urine <2.0 mg/dL (<2.0)
[2018-02-21 22:30] LABS: ALT 30 U/L (9-52); AST 27 U/L (14-36); Albumin 4.2 g/dL (3.5-5.0); Alkaline Phosphatase 33 U/L (38-126); Amylase 70 U/L (30-110); Anion Gap 8 mmol/L; Blood Urea Nitrogen 14 mg/dL (7-17); Calcium 9.3 mg/dL (8.4-10.2); Carbon Dioxide 23 mmol/L (22-30); Chloride 108 mmol/L (98-107); Glucose 89 mg/dL (74-99); Lipase 142 U/L (23-300); Potassium 4.1 mmol/L (3.5-5.1); Sodium 139 mmol/L (137-145); Total Bilirubin 0.3 mg/dL (0.2-1.3); Total Protein 6.8 g/dL (6.3-8.2)
[2018-02-21] MEDS ORDERED: SUCRALFATE 1 GM TAB PO STA (23:31)
--- NOTE | 2018-02-21 23:38 | CT ---
EXAMINATION TYPE: CT angio chest DATE OF EXAM: 02/21/2018 11:32 PM COMPARISON: None HISTORY: upper abdominal pain CT DLP: 228 mGycm Automated exposure control for dose reduction was used. CONTRAST: CTA scan of the thorax is performed with IV Contrast, patient injected with 100mL mL of Isovue 370, p ulmonary embolism protocol. . FINDINGS: There is minimal pleural thickening at the lung apices. Heart size is normal. There is no pericardial effusion. There is normal contrast opacification of the pulmonary arteries. There are no filling def ects. There are no hilar masses. There is no mediastinal adenopathy. Thoracic aorta is intact. The bony thorax is intact. The lungs are clear of infiltrate. There is no pleural effusion. IMPRESSION: NEGATIVE CT ANGIOGRAM OF THE CHEST. NO EVIDENCE OF PULMONARY EMBOLISM. SMALL HIATAL HERNIA NOTED.
--- NOTE | 2018-02-21 23:42 | CT ---
EXAMINATION TYPE: CT abdomen pelvis w con DATE OF EXAM: 02/21/2018 COMPARISON: HISTORY: upper abdominal pain CT DLP: 555.9 mGycm Automated exposure control for dose reduction was used. TECHNIQUE: Helical acquisition of images was performed from the lung bases through the pelvis. CONTRAST: Performed without Oral Contrast and with IV Contrast, patient injected with 100mL mL of Isovue 370. FINDINGS: The lung bases are clear. There is no pleural effusion. There are small hiatal hernia. Liver spleen p ancreas appear normal. There are clips from cholecystectomy. The bile ducts are not dilated. There is no adrenal mass. Kidneys show satisfactory contrast opacification. There is no hydronephrosi s. There is no retroperitoneal adenopathy. Bladder distends smoothly. There is small amount of free fluid in the pelvis. There is no inguinal he rnia. I see no pelvic mass. The appendix appears normal. There are small cysts on the ovaries. The ut erus is retroverted. The lumbar spine is intact. Bony pelvis is intact. There is no evidence of free air. There is no ascites. I see no evidence of a bowel obstruction. There is no intestinal wall thick ening. There is no evidence of mesenteric edema or adenopathy. There is broad-based umbilical hernia that contains fat. IMPRESSION: THERE ARE SMALL AMOUNT OF FREE FLUID IN THE PELVIS. NORMAL APPENDIX. SMALL OVARIAN CYSTS.
[2018-02-22 00:23] VITALS: BP 117/75; TEMP 97.9
== END 2018-02-22 00:21 | disposition home or self-care (01) ==
LOC: EC 20:26
DX: K29.70 Gastritis, unspecified, without bleeding (principal); K44.9 Diaphragmatic hernia without obstruction or gangrene; D72.829 Elevated white blood cell count, unspecified; N83.209 Unspecified ovarian cyst, unspecified side; J45.909 Unspecified asthma, uncomplicated; Z90.49 Acquired absence of other specified parts of digestive tract; Z98.51 Tubal ligation status; Z79.899 Other long term (current) drug therapy
CPT/HCPCS: 99285; 96360; 36415; 93005; 85379; 80053; 82150; 83605; 83690; 84484; 85025; 81003; 71046; 74018; 71275; 74177; Q9967

== ENCOUNTER → 2018-04-02 | Outpatient (CLI) | payer MEDICAID, OTHER ==
[2018-04-02 16:34] LABS: Basophils # (A) 0.1 k/uL (0-0.2); Basophils % (A) 1 %; Eosinophils # (A) 0.5 k/uL (0-0.7); Eosinophils % (A) 6 %; HCT 33.8 % (34.0-46.0); HGB 10.9 gm/dL (11.4-16.0); Lymphocytes # (A) 2.1 k/uL (1.0-4.8); Lymphocytes % (A) 30 %; MCH 27.5 pg (25.0-35.0); MCHC 32.2 g/dL (31.0-37.0); MCV 85.5 fL (80.0-100.0); Mean Platelet Volume 7.3; Monocytes # (A) 0.3 k/uL (0-1.0); Monocytes % (A) 4 %; Neutrophils % (A) 57 %; Platelet Count 322 k/uL (150-450); RBC 3.95 m/uL (3.80-5.40); RDW 13.9 % (11.5-15.5); WBC 7.1 k/uL (3.8-10.6)
[2018-04-02 22:43] LABS: Albumin 4.4 g/dL (3.80-4.90); Albumin/Globulin Ratio 2.44 (1.60-3.17); Calcium 9.3 mg/dL (8.7-10.3); Globulin 1.8 g/dL (1.6-3.3); Potassium 4.1 mmol/L (3.5-5.5); Total Bilirubin 0.3 mg/dL (0.2-1.2); Total Protein 6.2 g/dL (6.2-8.2)
== END ==
LOC: LABWHC1 15:59
PROVIDERS: ATTEND Family Medicine
DX: R51 Headache (principal)
CPT/HCPCS: 36415; 80053; 82607; 85025

== ENCOUNTER → 2018-04-15 | Outpatient (CLI) | payer MEDICAID ==
[2018-04-15 17:05] LABS: Basophils # (A) 0.1 k/uL (0-0.2); Basophils % (A) 1 %; Eosinophils # (A) 0.6 k/uL (0-0.7); Eosinophils % (A) 6 %; HCT 34.7 % (34.0-46.0); HGB 11.3 gm/dL (11.4-16.0); Lymphocytes # (A) 2.5 k/uL (1.0-4.8); Lymphocytes % (A) 28 %; MCH 27.8 pg (25.0-35.0); MCHC 32.5 g/dL (31.0-37.0); MCV 85.6 fL (80.0-100.0); Mean Platelet Volume 8.4; Monocytes # (A) 0.4 k/uL (0-1.0); Monocytes % (A) 5 %; Neutrophils # (A) 5.2 k/uL (1.3-7.7); Neutrophils % (A) 58 %; Platelet Count 263 k/uL (150-450); RBC 4.06 m/uL (3.80-5.40); RDW 14.5 % (11.5-15.5); WBC 8.9 k/uL (3.8-10.6)
[2018-04-15 18:10] LABS: Erythrocyte Sedimentation Rate 7 mm/hr (0-20)
[2018-04-15 23:21] LABS: Rheumatoid Factor 8 IU/mL (0-15)
[2018-04-16 00:20] LABS: ALT 16 U/L (8-44); AST 23 U/L (13-35); Albumin/Globulin Ratio 2.44 (1.60-3.17); Alkaline Phosphatase 38 U/L (41-126); C Reactive Protein <0.4 mg/dL (0.0-0.8); Carbon Dioxide 22.1 mmol/L (21.6-31.8); Chloride 109 mmol/L (96-109); Globulin 1.8 g/dL (1.6-3.3); Glucose 79 mg/dL (70-110); Potassium 4.2 mmol/L (3.5-5.5); Sodium 138 mmol/L (135-145); Total Bilirubin 0.2 mg/dL (0.3-1.2); Total Protein 6.2 g/dL (6.2-8.2)
[2018-04-16 00:38] LABS: Hepatitis A Antibody IgM Non-Reactive (Non-Reactive); Hepatitis B Core IgM Non-Reactive (Non-Reactive)
[2018-04-16 01:05] LABS: HIV 1 AB Non-Reactive (Non-Reactive); HIV AB P24 Non-Reactive (Non-Reactive); HIV P24 AG Non-Reactive (Non-Reactive)
[2018-04-17 05:11] LABS: Herpes simplex IgG I Ab <0.01 (< or = 0.90); Herpes simplex IgG II Ab 5.05 (< or = 0.90)
== END | disposition home or self-care (01) ==
LOC: LABWHC1 16:42
PROVIDERS: ATTEND Internal Medicine Infectious Disease
DX: G43.909 Migraine, unspecified, not intractable, without status migrainosus (principal); Z91.048 Other nonmedicinal substance allergy status
CPT/HCPCS: 36415; 80053; 80074; 85025; 85652; 86038; 86140; 86431; 86694; 86695; 86696; 87390

== ENCOUNTER → 2018-05-03 | Outpatient (CLI) | payer MEDICAID ==
--- NOTE | 2018-05-03 08:51 | MR ---
EXAMINATION TYPE: MR brain wo/w con DATE OF EXAM: 05/03/2018 COMPARISON: CT brain September 19, 2017 HISTORY: Migraines, dizziness, occipital neuritis all per order. Symptoms of dizziness, vertigo, limb weakness, and photophobia with some sensitivity also per patient with history of viral meningitis. TECHNIQUE: Multiplanar, multisequence images of the brain and brainstem is performed without and with IV contras t, utilizing 6 mL intravenous Gadavist . FINDINGS: Diffusion weighted images demonstrate no evidence of a recent infarct or other diffusion ab normality. There is no worrisome extra-axial fluid collection or significant white matter signal abn ormality. The ventricular system and cisternal spaces are normal in size and appearance. The brain volume is age appropriate. There are a few tiny foci of T2 hyperintensity throughout the white matter bilaterally, less than 5 lesions are seen, largest measures 2 to 3 mm in long axis left frontal deep white matter axial image 18. No significant fluid signal bilateral mastoid air cells is seen. Midline structures demonstrate normal morphology. The craniocervical junction appears within normal limits. Post contrast images demonstrate no abnormal enhancement. The dural venous sinuses appear pa tent. There is now mild mucosal thickening in the left maxillary sinus. There is more moderate to sev ere mucosal thickening with fluid completely filling the right maxillary sinus. Mild mucosal thickeni ng ethmoid sinuses bilaterally, left greater than right more prominent anteriorly is noted. The anter ior globes are distorted bilaterally by artifact. Nasal septum remains deviated to right of midline. IMPRESSION: 1. Acute on chronic paranasal sinus disease as detailed above progressed from 2018 CT worse in the ri ght maxillary sinus similar to prior CT. 2. Minimal nonspecific white matter changes. No suspicious enhancement is present.
== END ==
LOC: RADMRIMAIN 07:36
PROVIDERS: ATTEND Physician Assistant
DX: G43.909 Migraine, unspecified, not intractable, without status migrainosus (principal); H46.9 Unspecified optic neuritis
CPT/HCPCS: 70553; A9585

== ENCOUNTER → 2018-05-08 | Outpatient (CLI) | payer MEDICAID ==
--- NOTE | 2018-05-08 22:50 | MR ---
MRI CERVICAL SPINE: CLINICAL HISTORY: Cervicalgia per order. Headaches, vertigo, dizziness, vision changes, and bilateral leg weakness all per patient. TECHNIQUE: Multiplanar, multisequence imaging of the cervical spine is performed without and with IV contrast, 6.5 cc of gadolinium was given intravenously. COMPARISON: None. FINDINGS: Sagittal images of the cervical spine show the craniocervical junction to appear within nor mal limits. The cervical and upper thoracic spinal cord is normal in course, caliber, and signal. V ertebral alignment is anatomic. The vertebral body and intravertebral disk heights are normal. The bone marrow signal intensity is within normal limits. No suspicious postcontrast enhancement is seen. Axial images at the C3-C4 level shows loculated posterior disc protrusion mildly facing and throughou t thecal sac and axial image 39. Remainder axial levels both within normal limits. IMPRESSION: Small disc herniation C3-C4 level mildly effaces the anterior thecal sac otherwise unrema rkable study.
== END | disposition home or self-care (01) ==
LOC: RADMRIMAIN 16:42
PROVIDERS: ATTEND Psychiatry & Neurology Neurology
DX: M50.21 Other cervical disc displacement, high cervical region (principal); G43.909 Migraine, unspecified, not intractable, without status migrainosus; H46.9 Unspecified optic neuritis
CPT/HCPCS: 72156; A9585

== ENCOUNTER 2018-06-13 08:03 | Day surgery (SDC) | payer MEDICAID ==
[2018-06-10 11:05] VITALS: BMI 23.3
[~2018-06-13 08:03] MED LIST: DEXAMETHASONE SOD PHOSPHATE 10 MG/ML 1 ML VIAL IV ONE; DEXAMETHASONE SOD PHOSPHATE 4 MG/ML 1 ML VIAL IV ONE; FAMOTIDINE 20 MG/2 ML VIAL IV ONE; LACTATED RINGERS 1,000 ML IV SCH; LIDOCAINE 1% 20 ML VIAL (10MG/ML) FOR IV START INTRADERMA PRN; MIDAZOLAM (PF) 2 MG/2 ML VIAL IV PRN; ONDANSETRON 4 MG/2 ML VIAL IVP ONE; SCOPOLAMINE 1.5MG/72HR PATCH TRANSDERM ONE
[2018-06-13] MEDS: OXYMETAZOLINE 0.05% NASL SPRAY 1 SPRAY BOTTLE NASAL ONE ×5 (08:34→09:11)
[2018-06-13] MEDS ORDERED: ONDANSETRON 4 MG/2 ML VIAL ONE (09:16)
[2018-06-13] MEDS ORDERED: SUCCINYLCHOLINE CHLORIDE 100 MG/5 ML SYR IV ONE (09:16)
[2018-06-13] MEDS ORDERED: LIDOCAINE 1% INJ 10MG/ML (20 ML MDV) ONE (09:16)
[2018-06-13] MEDS ORDERED: ROCURONIUM BROMIDE 10 MG/ML 10 ML VIAL IV ONE (09:16)
[2018-06-13] MEDS ORDERED: MIDAZOLAM 2 MG/2 ML VIAL ONE (09:16)
[2018-06-13] MEDS ORDERED: PROPOFOL 10 MG/ML 20 ML VIAL IV ONE (09:16)
[2018-06-13] MEDS ORDERED: DEXAMETHASONE SOD PHOS (MDV) 100 MG/10 ML VIAL ONE (09:16)
[2018-06-13] MEDS ORDERED: fentaNYL (PF) 50 MCG/ML 2 ML AMP ONE (09:16)
[2018-06-13] MEDS ORDERED: LIDOCAINE 1%-EPI 1:100,000 20 ML VIAL SQ ONE ×2 (09:37)
[2018-06-13] MEDS ORDERED: BUPIVACAIN-EPI 0.5%-1:200,000 30 ML VIAL SQ ONE ×2 (09:41)
[2018-06-13] MEDS ORDERED: EPINEPHrine 1 MG/ML (MDV) 30 ML VIAL IRRIGATION ONE (09:41)
[2018-06-13] MEDS ORDERED: FLUORESCEIN STRIPS 1 MG STRIP MISCELLANE ONE (09:41)
[2018-06-13] MEDS ORDERED: BACITRACIN 500 UNIT/GM OINT 28.4 GM TUBE TOPICAL ONE (10:50)
[2018-06-13] MEDS ORDERED: PROMETHAZINE INJ 25 MG/ML 1 ML VIAL IVPB ONE (11:34)
[2018-06-13] MEDS: HYDROmorphone 0.5 MG/0.5 ML SYRINGE IVP PRN ×2 (11:41→11:46)
[2018-06-13] MEDS ORDERED: SCOPOLAMINE 1.5MG/72HR PATCH TRANSDERM ONE (11:52)
[2018-06-13 11:54] VITALS: TEMP 97.8
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
[2018-06-13 12:26] VITALS: RESP 16
[2018-06-13] MEDS ORDERED: TRIMETHOBENZAMIDE 100 MG/ML 2 ML VIAL IM STA (12:34)
[2018-06-13 13:02] VITALS: BP 122/74; PULSE 73
== END 2018-06-13 13:37 | disposition home or self-care (01) ==
LOC: OR 08:03
PROVIDERS: ATTEND Otolaryngology
DX: J34.2 Deviated nasal septum (principal); J32.9 Chronic sinusitis, unspecified; J33.9 Nasal polyp, unspecified; B47.9 Mycetoma, unspecified; J45.909 Unspecified asthma, uncomplicated; F41.9 Anxiety disorder, unspecified; M95.0 Acquired deformity of nose; Z88.5 Allergy status to narcotic agent; Z79.899 Other long term (current) drug therapy; Z79.2 Long term (current) use of antibiotics; Z79.52 Long term (current) use of systemic steroids; Z79.890 Hormone replacement therapy; Z91.09 Other allergy status, other than to drugs and biological substances; Z82.5 Family history of asthma and other chronic lower respiratory diseases; Z87.891 Personal history of nicotine dependence
CPT/HCPCS: 30140; 30420; 31267; 31259; 81025; 88305; 88300; J0171; J2250; J1100 ×2; J2550; J3250; J2405; J0690; J2001; J3010; J0330; J2704; J1170

== ENCOUNTER → 2019-08-04 | Outpatient (CLI) | payer OTHER ==
--- NOTE | 2019-08-11 10:12 | MM ---
Reason for exam: screening (asymptomatic). Last mammogram was performed 4 years and 6 months ago. History: Family history of breast cancer in paternal grandmother. Physical Findings: A clinical breast exam by your physician is recommended on an annual basis and results should be correlated with mammographic findings. MG Screening Mammo w CAD Bilateral CC and MLO view(s) were taken. Prior study comparison: February 05, 2015, mammogram, performed at [facility]. The breast tissue is heterogeneously dense. This may lower the sensitivity of mammography. There is no discrete abnormality. ASSESSMENT: Negative, BI-RAD 1 RECOMMENDATION: Routine screening mammogram of both breasts in 1 year.
== END | disposition home or self-care (01) ==
LOC: RADMAMWWP 08:22
PROVIDERS: ATTEND Family Medicine
DX: Z12.31 Encounter for screening mammogram for malignant neoplasm of breast (principal)
CPT/HCPCS: 77067

== ENCOUNTER → 2020-08-05 | Outpatient (CLI) | payer BC, OTHER ==
--- NOTE | 2020-08-06 12:39 | MM ---
Reason for exam: screening (asymptomatic). Last mammogram was performed 1 year ago. History: Family history of breast cancer in paternal grandmother. Physical Findings: A clinical breast exam by your physician is recommended on an annual basis and results should be correlated with mammographic findings. MG Screening Mammo w CAD Bilateral CC and MLO view(s) were taken. Prior study comparison: August 04, 2019, bilateral MG screening mammo w CAD. February 05, 2015, mammogram, performed at [facility]. The breast tissue is heterogeneously dense. This may lower the sensitivity of mammography. ASSESSMENT: Negative, BI-RAD 1 RECOMMENDATION: Routine screening mammogram of both breasts in 1 year.
== END | disposition home or self-care (01) ==
LOC: RADMAMWWP 14:09
PROVIDERS: ATTEND Family Medicine
DX: Z12.31 Encounter for screening mammogram for malignant neoplasm of breast (principal); Z80.3 Family history of malignant neoplasm of breast
CPT/HCPCS: 77067

== ENCOUNTER → 2020-09-20 | Outpatient (CLI) | payer BC, OTHER ==
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
== END | disposition home or self-care (01) ==
LOC: RADMRIMAIN 21:04
PROVIDERS: ATTEND Psychiatry & Neurology Neurology
DX: A87.9 Viral meningitis, unspecified (principal); M50.221 Other cervical disc displacement at C4-C5 level
CPT/HCPCS: 70553; 72156; A9585

== ENCOUNTER → 2020-12-15 | Outpatient (CLI) | payer BC, OTHER ==
--- NOTE | 2020-12-15 15:54 | US ---
EXAMINATION TYPE: US thyroid st tissue head/neck DATE OF EXAM: 12/15/2020 COMPARISON: NONE CLINICAL HISTORY: E04.1 THYROID NODULE. lump in throat, difficulty swallowing, nikos's GLAND SIZE: Right Lobe: 4.0 x 1.3 x 1.5 cm Overall Parenchyma: homogenous Left Lobe: 3.1 x 1.1 x 0.9 cm Overall Parenchyma: homogeneous Isthmus Thickness: 0.3 cm NODULES RIGHT: # of nodules measured on right: 0 LEFT: # of nodules measured on left: 0 ISTHMUS: # of nodules measured in the isthmus: 0 Bilateral neck scanned, no evidence of lymphadenopathy. IMPRESSION: 1. Normal-appearing thyroid.
== END | disposition home or self-care (01) ==
LOC: RADUSWWP 15:01
PROVIDERS: ATTEND Otolaryngology
DX: R13.10 Dysphagia, unspecified (principal)
CPT/HCPCS: 76536

== ENCOUNTER → 2022-09-27 | Outpatient (CLI) | payer BC, OTHER | END | disposition home or self-care (01) | LOC: LABWHC1 09:38 | PROVIDERS: ATTEND Otolaryngology | DX: J30.89 Other allergic rhinitis (principal) | CPT/HCPCS: 36415; 82784 ==

== ENCOUNTER 2022-10-06 09:20 | Day surgery (SDC) | payer BC, OTHER ==
[2022-10-03 12:07] VITALS: BMI 22.4
[2022-10-06] MEDS ORDERED: LACTATED RINGERS 1,000 ML IV SCH (09:39)
[2022-10-06] MEDS ORDERED: LIDOCAINE 1% (10MG/ML) FOR IV START INTRADERMA PRN (09:39)
[2022-10-06 09:46] VITALS: TEMP 97.8
[2022-10-06] MEDS ORDERED: PROPOFOL 10 MG/ML 20 ML VIAL IV ONE (11:16)
[2022-10-06] MEDS ORDERED: fentaNYL (PF) 50 MCG/ML 2 ML AMP ONE (11:16)
[2022-10-06] MEDS ORDERED: ONDANSETRON 4 MG/2 ML VIAL ONE (11:16)
[2022-10-06] MEDS ORDERED: LIDOCAINE 2% INJ 20 MG/ML (2 ML VIAL) ONE (11:16)
[2022-10-06] MEDS ORDERED: MIDAZOLAM 2 MG/2 ML VIAL ONE (11:16)
--- NOTE | 2022-10-06 11:29 | P.PCN ---
Date of Procedure: 10/06/22 Procedure(s) Performed: BRIEF HISTORY: Patient is a 42-year-old, pleasant, white female scheduled for an upper endoscopy as a part of evaluation of intermittent dysphagia to solids and long-standing history of GERD. PROCEDURE PERFORMED: Esophagogastroduodenoscopy. PREOPERATIVE DIAGNOSIS: Long-standing history of GERD and intermittent dysphagia to solids. IV sedation per anesthesia. PROCEDURE: After informed consent was obtained, the patient was brought into the endoscopy unit. IV sedation was administered by Anesthesia under continuous monitoring. Initially the Olympus GIF-140 video endoscope was inserted into the mouth. Esophagus intubated without any difficulty. It was gradually advanced i nto the stomach and duodenum and carefully examined. The bulb and the second part of the duodenum appeared normal. The scope at this time was withdrawn to the stomach, adequately insufflated with air, and upon careful examination, mucosa of the antrum, had patchy areas of erythema consistent with gastritis. Biopsies were done from the antrum. Mucosa of the body, cardia and the fundus appeared normal. The scope was then withdrawn into the esophagus. small hiatal hernia noted. The GE junction was located at 39 cm from the incisors. the mucosa in the mid and distal esophagus and slightly thickened esophageal folds suspicious for eosinophilic esophagitis and multiple biopsies were done from this area. The rest of the esophagus appeared normal. There were no erosions or ulcerations seen and the patient tolerated the procedure well. IMPRESSION: 1. Mild antral gastritis 2. Small hiatal hernia and somewhat thickened esophageal folds in the mid and distal esophagus status post multiple biopsies to evaluate for eosinophilic esophagitis. 3. No evidence of Melanie esophagitis RECOMMENDATIONS: The findings of this examination were discussed with the patient as well as her family. She was advised to follow with the biopsy results. Continue with Nexium 20 mg daily and follow antireflux measures..
[2022-10-06 11:41] VITALS: RESP 18
[2022-10-06 11:53] VITALS: BP 123/65; PULSE 65
== END 2022-10-06 12:06 | disposition home or self-care (01) ==
LOC: ORWHC2ENDO 09:20
PROVIDERS: ATTEND Internal Medicine Gastroenterology
DX: K29.50 Unspecified chronic gastritis without bleeding (principal); K21.00 Gastro-esophageal reflux disease with esophagitis, without bleeding; K44.9 Diaphragmatic hernia without obstruction or gangrene; J45.909 Unspecified asthma, uncomplicated; E07.9 Disorder of thyroid, unspecified; Z79.51 Long term (current) use of inhaled steroids; Z79.899 Other long term (current) drug therapy; Z88.8 Allergy status to other drugs, medicaments and biological substances
CPT/HCPCS: 81025; 88305; 43239; J2250; J2405; J3010; J2704; J2001

== ENCOUNTER → 2023-02-20 | Outpatient (CLI) | payer BC, OTHER ==
--- NOTE | 2023-02-21 11:13 | MM ---
Reason for Exam: Screening (asymptomatic). Last mammogram was performed 2 year(s) and 7 month(s) ago. Patient History: Menarche at age 12. First Full-Term at age 24. Patient tested for BRCA1 outcome was negative. Patient tested for BRCA2 outcome was negative. Paternal grandmother had breast cancer. Risk Values: Jannette 5 year model risk: 0.8%. NCI Lifetime model risk: 9.8%. Prior Study Comparison: 02/05/2015 Screening Mammogram, [facility]. 08/04/2019 Bilateral Screening Mammogram, [facility]. 08/05/2020 Bilateral Screening Mammogram, [facility]. Tissue Density: The breast tissue is heterogeneously dense. This may lower the sensitivity of mammography. Findings: Analyzed By CAD. Pattern appears symmetrical and stable. There is a 0.4 cm oval density located 5 cm from the nipple upper right breast. This may be a change from comparison. Additional workup is recommended. Follow-up compression MLO and standard right medial lateral view recommended. Ultrasound may be required to complete the workup There appears to be some chronic nodularity within the left breast. Overall Assessment: Incomplete: need additional imaging evaluation, BI-RAD 0 Management: Diagnostic Mammogram of the right breast. A negative mammogram report should not preclude additional follow up of suspicious palpable abnormalities. Patient should continue monthly self breast exam. A clinical breast exam by your physician is recommended on an annual basis and results should be correlated with mammographic findings. Electronically signed and approved by: Martell Hawley D.O. Radiologis
== END | disposition home or self-care (01) ==
LOC: RADMAMWWP 11:22
PROVIDERS: ATTEND Family Medicine
DX: Z12.31 Encounter for screening mammogram for malignant neoplasm of breast (principal); Z80.3 Family history of malignant neoplasm of breast
CPT/HCPCS: 77067

== ENCOUNTER → 2023-02-23 | Outpatient (CLI) | payer BC, OTHER ==
--- NOTE | 2023-02-23 14:29 | MM ---
Reason for Exam: Additional evaluation requested from abnormal screening. Last screening mammogram was performed less than 1 month ago. Patient History: Menarche at age 12. First Full-Term at age 24. Patient tested for BRCA1 outcome was negative. Patient tested for BRCA2 outcome was negative. Paternal grandmother had breast cancer. Risk Values: Jannette 5 year model risk: 0.8%. NCI Lifetime model risk: 9.8%. Tissue Density: Right: The breast tissue is heterogeneously dense. This may lower the sensitivity of mammography. Analyzed By CAD. Overall Assessment: Incomplete: need additional imaging evaluation, BI-RAD 0 Management: Screening Breast Ultrasound of the right breast. Electronically signed and approved by: Martell Hawley D.O. Radiologis
--- NOTE | 2023-02-23 15:13 | USB ---
Reason for Exam: Additional evaluation requested from abnormal screening. Patient History: Menarche at age 12. First Full-Term at age 24. Patient tested for BRCA1 outcome was negative. Patient tested for BRCA2 outcome was negative. Paternal grandmother had breast cancer. Risk Values: Jannette 5 year model risk: 0.8%. NCI Lifetime model risk: 9.8%. Technique: Method: Targeted. Prior Study Comparison: 08/04/2019 Bilateral Screening Mammogram, [facility]. 08/05/2020 Bilateral Screening Mammogram, [facility]. 02/20/2023 Bilateral MG screening mammo w CAD, [facility]. Findings: The upper outer quadrant of the right breast, the axilla of the right breast and the retroareolar of the right breast were scanned. There is a 0.3 x 0.4 x 0.4 cm hypoechoic area near the chest wall 10:00 position 5 cm the nipple. This may correlate with mammographic finding. Precautionary six-month follow-up is recommended.. Overall Assessment: Probably benign, BI-RAD 3 Management: Diagnostic Mammogram of the right breast in 6 months. Diagnostic Breast Ultrasound of the right breast in 6 months. A clinical breast exam by your physician is recommended on an annual basis and results should be correlated with mammographic findings. This exam should not preclude additional follow-up of suspicious palpable abnormalities. Results were given to the patient verbally at the time of exam. Electronically signed and approved by: Martell Hawley D.O. Radiologis
== END | disposition home or self-care (01) ==
LOC: RADMAMWWP 14:02
PROVIDERS: ATTEND Family Medicine
DX: R92.331 Mammographic heterogeneous density, right breast (principal); Z80.3 Family history of malignant neoplasm of breast
CPT/HCPCS: 77061; 77065